=== PATIENT | male | born 1960 | race Caucasian/White ===

== ENCOUNTER 2017-11-27 16:54 | Emergency (ER) | payer OTHER ==
[~2017-11-27] VITALS: Ht 180.3 cm; Wt 90.7 kg
[2017-11-27] MEDS ORDERED: LISI20 PO (17:11)
[2017-11-27] MEDS ORDERED: INSULANPEN (17:12)
[2017-11-27] MEDS ORDERED: Novolin R100 UNIT/M SC (17:12)
[2017-11-27] MEDS ORDERED: METF500 PO (17:12)
[2017-11-27 17:49] LABS: BASOPHILS ABSOLUTE AUTO 0.09 K/mm3 (0.00-0.23); BASOPHILS PERCENT AUTO 1 % (0-2); EOSINOPHILS ABSOLUTE AUTO 0.12 K/mm3 (0.00-0.68); EOSINOPHILS PERCENT AUTO 2 % (0-6); Hematocrit 40.6 % (37.0-53.0); Hemoglobin 14.1 g/dL (13.5-17.5); IMMATURE GRAN ABSOLUTE AUTO 0.04 K/mm3 (0.00-0.10); IMMATURE GRAN PERCENT AUTO 1 % (0-1); LYMPHOCYTES ABSOLUTE AUTO 2.26 K/mm3 (0.84-5.20); LYMPHOCYTES PERCENT AUTO 33 % (21-46); MONOCYTES ABSOLUTE AUTO 0.69 K/mm3 (0.16-1.47); MONOCYTES PERCENT AUTO 10 % (4-13); Mean Corpuscular HGB 29.7 pg (26.0-34.0); Mean Corpuscular HGB Conc 34.7 g/dL (31.5-36.5); Mean Corpuscular Volume 86 fL (80-100); Mean Platelet Volume 10.9 fL (9.1-12.4); NEUTROPHILS ABSOLUTE AUTO 3.73 K/mm3 (1.96-9.15); NEUTROPHILS PERCENT AUTO 54 % (41-73); Platelet Count 315 K/mm3 (150-400); RDW Coefficient Variation 11.8 % (11.7-14.2); Red Blood Cell Count 4.74 M/mm3 (4.30-5.90); White Blood Cell Count 6.93 K/mm3 (4.00-11.30)
[2017-11-27 18:08] LABS: Alanine Aminotransfer (ALT/SGP 29 U/L (12-78); Albumin, Blood 3.6 g/dL (3.4-5.0); Albumin/Globulin Ratio 0.8 (0.8-1.8); Alk Phos 94 U/L (50-136); Anion Gap 7 mmol/L (6-16); Aspartate Aminotrans (AST/SGOT 16 U/L (12-37); Bilirubin, Total 0.2 mg/dL (0.1-1.0); Blood Urea Nitrogen 20 mg/dL (8-24); Bun/Creatinine Ratio 26.3 (12.0-20.0); CO2, Blood 27 mmol/L (21-32); Calcium, Blood 8.7 mg/dL (8.5-10.1); Chloride, Blood 101 mmol/L (98-108); Creatinine, Blood 0.76 mg/dL (0.60-1.20); Globulin, Blood 4.5 g/dL (2.2-4.0); Glomerular Filtration Rate >60 (60-); Glucose, Blood 386 mg/dL (70-99); Potassium, Blood 3.9 mmol/L (3.5-5.5); Sodium, Blood 135 mmol/L (136-145); Total Protein, Blood 8.1 g/dL (6.4-8.2); Troponin I <0.015 ng/mL (0.000-0.040)
[2017-11-27] MEDS ORDERED: IBUP600 PO (20:39)
[2017-11-27] MEDS ORDERED: Percocet 5-3251 EACH PO (20:39)
[2018-03-12] MEDS ORDERED: Hydrocodone-Ap1 EA20 PO (19:35)
[2018-03-12] MEDS ORDERED: HYDROCODONE-IB1 EACH PO (19:36)
[2018-03-12] MEDS ORDERED: IBUP800 PO (19:37)
[2018-03-12] MEDS ORDERED: LIDO700A20 TOP (19:38)
[2018-03-12] MEDS ORDERED: OXYC10TA19 PO (19:39)
[2018-03-12] MEDS ORDERED: NITR.4SL SL (19:39)
[2018-03-12] MEDS ORDERED: TAMS.4ER PO (19:40)
[2018-03-13] MEDS ORDERED: INVOKANA300 MG PO (12:14)
[2018-03-13] MEDS ORDERED: LISI20 PO (12:14)
[2018-03-13] MEDS ORDERED: METO25 PO (12:15)
[2018-03-13] MEDS ORDERED: ALPR.5 PO (12:19)
[2018-03-14] MEDS ORDERED: Hydrocodone-Ap1 EA20 PO (09:03)
[2018-03-16] MEDS ORDERED: LEVO750 PO (16:00)
== END 2017-11-27 21:18 | disposition home or self-care (01) ==
LOC: ER 16:54
PROVIDERS: Emergency Medicine
DX: S16.1XXA Strain of muscle, fascia and tendon at neck level, initial encounter (principal); S40.011A Contusion of right shoulder, initial encounter; S40.021A Contusion of right upper arm, initial encounter; I11.0 Hypertensive heart disease with heart failure; I50.9 Heart failure, unspecified; E11.9 Type 2 diabetes mellitus without complications; V43.63XA Car passenger injured in collision with pick-up truck in traffic accident, initial encounter
CPT/HCPCS: 36415; 70450; 71046; 72125; 73030; 73060; 80053; 84484; 85025; 93005; 93010; 96374; 96375; 96376; 99284; J1170; J2405; L0160

== ENCOUNTER 2018-04-02 14:43 | Day surgery (SDC) | payer OTHER ==
[~2018-04-02 14:43] MED LIST: ALPR.5 PO; HYDROCODONE-IB1 EACH PO; Hydrocodone-Ap1 EA20 PO; IBUP600 PO; IBUP800 PO; INSULANPEN; INVOKANA300 MG PO; LEVO750 PO; LIDO700A20 TOP; LISI20 PO; METF500 PO; METO25 PO; NITR.4SL SL; Novolin R100 UNIT/M SC; OXYC10TA19 PO; Percocet 5-3251 EACH PO; TAMS.4ER PO
[2018-04-02 15:21] LABS: Prothrombin Time Results 10.4 Sec (9.7-11.5)
== END 2018-04-02 22:49 | disposition home or self-care (01) ==
LOC: LAB 14:43 → US 14:43
PROVIDERS: Orthopaedic Surgery
DX: L03.115 Cellulitis of right lower limb (principal); R30.0 Dysuria; E11.42 Type 2 diabetes mellitus with diabetic polyneuropathy
CPT/HCPCS: 36415; 76882; 85610; 85730

== ENCOUNTER 2019-06-07 01:10 | Inpatient (IN) | payer OTHER ==
[~2019-06-07] VITALS: Ht 180.3 cm; Wt 86.5 kg
[2019-06-07 02:11] LABS: Mean Platelet Volume 11.4 fL (9.1-12.4); Platelet Count 251 K/mm3 (150-400)
[2019-06-07] MEDS ORDERED: Aspirin EC81 MG PO (02:23)
[2019-06-07] MEDS ORDERED: JARDIANCE10 MG PO (02:24)
[2019-06-07] MEDS ORDERED: IBUP800 PO (02:25)
[2019-06-07] MEDS ORDERED: Prinivil10 MG PO (02:25)
[2019-06-07] MEDS ORDERED: OXYC10TA19 PO (02:26)
[2019-06-07] MEDS ORDERED: METO25ER PO (02:26)
[2019-06-07] MEDS ORDERED: METF500 PO (02:26)
[2019-06-07] MEDS ORDERED: TAMS.4ER PO (02:27)
[2019-06-07 02:40] LABS: International Normalized Ratio 1.03; Prothrombin Time Results 10.9 Sec (9.7-11.5)
--- NOTE | 2019-06-07 03:55 | NUR ---
ADMIT PT ARRIVES FROM ER ON STRETCHER. PER PT, HAD BEEN WORKING OUTSIDE YESTERDAY, WENT INSIDE AND WOKE UP HURTING ALL OVER. PER PT, NEVER HAD CP, JUST GENERALIZED/DIFFUSE PAIN. PT ARRIVES ON NTG GTT AT 10MCG/MIN AND HEPARIN AT 13UNITS/KG/HR VERIFIED WITH CALISTA JAUREGUI. PT MEDICATED WITH PO PAIN MEDS PER ORDER, CALL OUT TO DR CARRENO FOR ORDER CLARIFICATION. PT HAS DIABETIC FOOT WOUND TO PLANTAR ASPECT OF LEFT FOOT. 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 PHOTO OBTAINED, ON CHART AND DRESSING CHANGED. VSS, ECG SHOWS SR AND O2 SATS 98% ON RA.
[2019-06-07 04:13] LABS: Hematocrit 36.8 % (37.0-53.0); Hemoglobin 11.9 g/dL (13.5-17.5); Mean Corpuscular HGB 29.6 pg (26.0-34.0); Mean Corpuscular HGB Conc 32.3 g/dL (31.5-36.5); Mean Corpuscular Volume 92 fL (80-100); Mean Platelet Volume 10.8 fL (9.1-12.4); Platelet Count 229 K/mm3 (150-400); RDW Coefficient Variation 12.5 % (11.7-14.2); RDW Standard Deviation 41.6 fL (35.1-46.3); Red Blood Cell Count 4.02 M/mm3 (4.30-5.90); White Blood Cell Count 7.22 K/mm3 (4.00-11.30)
[2019-06-07] MEDS ORDERED: Norco 10-325 T1 EACH PO (04:15)
[2019-06-07 04:33] LABS: Anion Gap 6 mmol/L (6-16); Blood Urea Nitrogen 15 mg/dL (8-24); Bun/Creatinine Ratio 16.2 (12.0-20.0); CO2, Blood 27 mmol/L (21-32); Calcium, Blood 8.5 mg/dL (8.5-10.1); Chloride, Blood 103 mmol/L (98-108); Creatinine, Blood 0.93 mg/dL (0.60-1.20); Glomerular Filtration Rate >60 (60-); Glucose, Blood 146 mg/dL (70-99); Sodium, Blood 136 mmol/L (136-145)
--- NOTE | 2019-06-07 05:21 | NUR ---
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 PT HAS BEEN UNDER THE CARE OF A LUMBER SCALER AT THE [facility] WHO HAS FOLLOWED UP WITH REPEAT SWABS AND PER PT, HAVE BEEN CLEAR. MESSAGE TO INFECTION CONTROL TO UDPATE AND AWAIT ADDITIONAL INSTRUCTIONS.
--- NOTE | 2019-06-07 06:18 | NUR ---
SHIFT SUMMARY NO ACUTE EVENTS SINCE ARRIVAL AT 0355. PT CURRENTLY RESTING QUIETLY AND PT'S VINICIO IS IN THE ROOM. NTG AT 15MCG/MIN AND HEPARIN REMAINS AT 13UNITS/KG/HR WITH REPEAT PTT PLANNED AT 1000. PT HAS REPORTED GENERALIZED PAIN IN HIS BACK, OFFERED WARMING BLANKET, REPOSITIONING ASSISTANCE AND TOOK PO PAIN MEDS. VSS, ECG SHOWS SR AND O2 SATS >95%.
--- NOTE | 2019-06-07 08:18 | NUR ---
PT SLEEPING, AROUSES TO VOICE. DENIES C/O CHEST PAIN/PRESSURE, DENIES ALL C/O PAIN, NAUSEA,SOB. C/O BEING "HUNGRY". PT SOMEWHAT IRRITABLE. REASONS FOR NPO STATUS EXPLAINED TO PT, PT MAY HAVE INTERVENTION TODAY. TROPONIN HAS DROPPED TO 1.26, DR RHOADES AT BEDSIDE TO SEE PT, NOTIFIED OF TROPONIN LEVEL. HEPARIN GTT RUNNING AT 13UNITS, NTG RUNNING AT 15MCG. PO MEDS GIVEN W SMALL SIP OF WATER. PT REQUEST TO SLEEP.
--- NOTE | 2019-06-07 10:18 | NUR ---
ECHO COMPLETE, CAROTID DOPPLER IN PROGRESS. DR RITCHIE IN WITH PT; CONSENTED FOR ANGIOGRAM. CT OF HEAD COMPLETE. PT AWAKE W/O COMPLAINTS. AT BEDSIDE.
--- NOTE | 2019-06-07 12:53 | NUR ---
HEPARIN IV BOLUS GIVEN PER PHARMACY ORDERS, HEPARIN INCREASED TO 15UNITS PER PHARMACY.
--- NOTE | 2019-06-07 14:29 | NUR ---
PT TO DEFENSE ANALYST FOR ANGIOGRAM WITH DEFENSE ANALYST STAFF.
[2019-06-07 17:29] LABS: Source, Urine Catheter
[2019-06-07 17:52] LABS: Bilirubin, Urine Neg (Neg); Blood, Urine Neg (Neg); Glucose Qualitative, Urine 3+ (Neg); Ketones, Urine Neg (Neg); Leukocyte Esterase, Urine Neg (Neg); Nitrite, Urine Neg (Neg); Protein, Urine Neg (Neg); Urobilinogen, Urine NORM (Normal)
--- NOTE | 2019-06-07 17:54 | NUR ---
PT RETURNED FROM HEAD GREENSKEEPER AT 1615. JANUSZ JAUREGUI TOOK BEDSIDE REPORT. PT ASSESSED BY THIS RN AT 1630. PT AWAKE AND ALERT W C/O PAIN TO LOWER BACK AND NECK 07/02. PT STATES HE HAD NECK PAIN FOR THE PAST 24HRS D/T A FALL AT HOME. R GROIN SITE W SHEATH STABEL, WITH NO HEMATOMA, SWELLING, OR BLEEDING. PULSES +@ TO R AND L P.T, D.P. AGGRASTAT AT 16.5 ML/HR PER HEAD GREENSKEEPER ORDERS AND TO RUN FOR [address] SCOTT. SHEATH MAY BE PULLED IF PTT TAKEN AT 1730 IS LESS THAN 50. NS RUNNING AT 200CC/HR X 1 LITER. CASANOVA PLACED D/T INABILITY TO VOID. 16F CATH PLACED W/O DIFF, UA SENT PER PROTOCOL.
[2019-06-07 18:23] LABS: Appearance, Urine Clear (Clear); Color, Urine Yellow (P-Yellow)
--- NOTE | 2019-06-07 19:14 | NUR ---
DURING BEDSIDE REPORT PT C/O PAIN TO LOWER AND MID BACK 07/02, PT BECAME VERY ANGRY TOWARDS ONCOMING RN, RAISING VOIVE AND THREATENING TO "IT RIP OUT MYSELF", SPEAKING OF SHEATH. ABLE TO CALM AND REDIRECT PT. PT INSISTENT THAT THAT HIS PAIN BE ADDRESSED IMMEDIATELY. DR SOCTT CALLED IMMEDIATELY AND GIVEN REPORT ON PT. NEW ORDERS FOR MS, FENT, ATIVAN IF NEEDED. PT WAS EDUCATED ON RISK OF POSSIBLE 2ND TO PULLING SHEATH. PT VERBALIZED UNDERSTANDING. ALSO NOTIFIED THAT PTT WAS STILL TOO HIGH TO PULL SHEATH.
--- NOTE | 2019-06-07 19:18 | NUR ---
ASSUMED CARE OF PT AT 1915. REPORT RECEIVED AT BEDSIDE. PT PRESENTS VERY ANGRY AND NON COMPLIANT ABOUT POSITIONING RELATED TO HAVING FEMORAL SHEATH IN PLACE. OFFGOING HOLLIS JAUREGUI CALLS DR CAGLE TO OBTAIN ORDERS SECONDARY PT'S ANGER AND PAIN ISSUES. DID ADDRESS PT AFTER ORDERS RECEIVED TO INFORM HIM OF THE ORDERS RECEIVED. WILL MEDICATE PT WHEN MEDICATIONS AVAILABLE. WILL REVIEW CHART AND PLAN OF CARE FOR THIS PT.
--- NOTE | 2019-06-07 19:43 | NUR ---
MEDICATED PT WITH 2 MG MORPHINE, AND 1 MG ATIVAN. HEAT PACKS APPLIED TO PT'S BACK. HE HAD STATED THAT HIS PAIN WAS A 12/10 TO HIS BACK DURING INITIAL GREETING, AND JUST POST MORPHINE AND ATIVAN CALMED TO 8/10. WILL READDRESSS SHORTLY TO SEE IF ANY IMPROVEMENTS WITH HEAT PACK AND MEDICATIONS HAS OCCURRED. OF NOTE: WHEN MEDICATIONS BROUGHT TO PT, PT VERBALIZED APOLOGIES FOR BEING VERBALLY AGGRESSIVE AND ANGRY TOWARDS THIS RN. WAS ABLE TO DO FURTHER TEACHING WITH PT ON SHEATH AND SAFETY. PT STATES THAT HE HAS HAD CARDIAC INTERVENTION BEFORE AND HAD RADIAL ACCESS. REASSURED PT AND ALLOWED HIM TO EXPRESS HIS FEELINGS AND FRUSTRATIONS. WILL MEDICATE PT WITH FENTANYL IF MORPHINE AND ATIVAN DOES NOT RELIEVE HIS PAIN TO HIS ACCEPTABLE PAIN LEVEL. RIGHT GROIN SITE WITHOUT HEMATOMA. PT HAS DESCRIBED HIS BACK PAIN MID BACK PAIN ACCROSS BOTH SIDES OF SPINE.
--- NOTE | 2019-06-07 23:00 | NUR ---
CALL RECEIVED FROM DR SCOTT WHEREAS ORDERS RECEIVED. WAS ABLE TO PULL SHEATH AT 2139 FROM RIGHT GROIN. HELD PRESSURE FOR 30 MINUTES SECONDARY TO PT RELUCTANCE TO FOLLOW INSTRUCTIONS WITH FEMORAL SHEATH PRECAUTIONS. PT'S STAYS IN ROOM AND TRIES TO KEEP PT CALM. WITH SHEATH PULL AND FOLLOWUP, PT VERY ANGRY. HE VOICES THAT HE IS UPSET THAT THE DOCTORS DID NOT TAKE CARE OF HIS BACK ISSUES FROM HIS FALL SEVERAL WEEKS AGO AND HIS FALL IN THE KITCHEN AT HOME PRIOR TO COMING INTO HOSPITAL. AFTER HEMOSTASIS ACHIEVED THIS RN REMAINED IN ROOM TO OBSERVE PT AND TO KEEP HIM FROM HAVING REBLEED. HE TOLD HIS DURING THIS TIME THAT HE WAS GOING TO MOVE AROUND IN BED HOWEVER AND WHENEVER HE WANTED. OPTED TO PLACE FEMSTOP TO RIGHT GROIN TO PASSIVE PRESSURE TO PROTECT SITE FROM BLEED. TEACHING DONE WITH PT AND HIS ON RATIONALE. HAVE MEDICATED PT WITH A TOTAL OF 75 MCG FENTANYL, 2 MG MORPHINE, 1 MG ATIVAN, 1 MG VERSED, AND SUBSEQUENTLY WITH 10MG OXYCODONE AND 650 MG TYLENOL FOR HIS COMPLAINTS OF BACK PAIN. HAVE PLACED WARM PACKS TO HIS BACK, AND DONE SOME POSITIONING WITHIN RESTICTIONS POST SHEATH PULL. PT'S HAS SINCE GONE HOME FOR THE NIGHT. WILL CONTINUE TO MONITOR PT.
--- NOTE | 2019-06-08 01:18 | NUR ---
HAVE MOVE BED UP TO 30 DEGREES, PT CURRENTLY SLEEPING. FEMSTOP HAS BEEN COMPLETELY RELEASED. RIGHT GROIN WITHOUT S/S BLEEDING OR HEMATOMA. PT AWAKENS FOR POSITION CHANGE AND MIDNIGHT TEMPERATURE WITHOUT COMPLAINTS OF PAIN. WILL CONTINUE TO MONITOR.
[2019-06-08 04:16] LABS: BASOPHILS PERCENT AUTO 1 % (0-2); EOSINOPHILS ABSOLUTE AUTO 0.21 K/mm3 (0.00-0.68); EOSINOPHILS PERCENT AUTO 3 % (0-6); Hematocrit 38.3 % (37.0-53.0); Hemoglobin 12.6 g/dL (13.5-17.5); IMMATURE GRAN ABSOLUTE AUTO 0.02 K/mm3 (0.00-0.10); IMMATURE GRAN PERCENT AUTO 0 % (0-1); LYMPHOCYTES ABSOLUTE AUTO 1.93 K/mm3 (0.84-5.20); LYMPHOCYTES PERCENT AUTO 26 % (21-46); MONOCYTES PERCENT AUTO 12 % (4-13); Mean Corpuscular HGB 28.8 pg (26.0-34.0); Mean Corpuscular HGB Conc 32.9 g/dL (31.5-36.5); Mean Platelet Volume 10.8 fL (9.1-12.4); NEUTROPHILS ABSOLUTE AUTO 4.26 K/mm3 (1.96-9.15); NEUTROPHILS PERCENT AUTO 58 % (41-73); Platelet Count 272 K/mm3 (150-400); RDW Coefficient Variation 12.6 % (11.7-14.2); RDW Standard Deviation 40.2 fL (35.1-46.3); Red Blood Cell Count 4.37 M/mm3 (4.30-5.90); White Blood Cell Count 7.42 K/mm3 (4.00-11.30)
[2019-06-08 04:17] LABS: Mean Corpuscular Volume 88 fL (80-100)
[2019-06-08 04:37] LABS: Anion Gap 6 mmol/L (6-16); Blood Urea Nitrogen 12 mg/dL (8-24); Bun/Creatinine Ratio 13.4 (12.0-20.0); CO2, Blood 26 mmol/L (21-32); Calcium, Blood 8.3 mg/dL (8.5-10.1); Chloride, Blood 107 mmol/L (98-108); Glomerular Filtration Rate >60 (60-); Glucose, Blood 98 mg/dL (70-99); Potassium, Blood 3.9 mmol/L (3.5-5.5); Sodium, Blood 139 mmol/L (136-145)
--- NOTE | 2019-06-08 04:51 | NUR ---
PT HAS NO COMPLAINTS OF PAIN. IS ABLE TO MOVE HIMSELF ABOUT IN BED. MAKES USE OF BED CONTROLS. HAS BEEN ABLE TO REST. GROIN SITE SOFT, NO HEMATOMA OR OOZING TO NOTE. GOOD DISTAL CMS CHECKS. WILL CONTINUE TO MONITOR.
--- NOTE | 2019-06-08 06:22 | NUR ---
PT ABLE TO MOVE ABOUT IN BED ON HIS OWN. HAS NO COMPLAINTS OF CHEST PAIN OR PRESSURE. NO COMPLAINTS OF BACK PAIN. RIGHT GROIN SITE REMAINS SOFT, NO OOZING OR HEMATOMA. GOOD DISTAL CMS CHECKS REMAIN. WILL CONTINUE TO MONITOR PT, AND WILL REPORT OFF TO ONCOMING RN.
--- NOTE | 2019-06-08 07:19 | NUR ---
PT AWAKE AND ALERT SITTING UP IN BED. BEDSIDE REPORT TAKEN. PT REMAINS IRRITABLE BUT COOPERATIVE. DR RITCHIE IN TO SEE PT. PLAN IS FOR PT TO BE DC'D HOME TODAY. EDILBERTO CRUZ'D BY ULISES JAUREGUI. PT COMPLAINTS OF BACK PAIN 07/02; CHRONIC PAIN. WILL MEDICATE FOR PAIN. PLAN, OOB TO CHAIR, NUTRITION CONSULT, PROBABLE DC HOME. RIGHT GROIN SITE STABLE, W/O SWELLING, BLEEDING, HEMATOMA.
[2019-06-08 08:51] LABS: CHOL/HDL RATIO 5.7; Cholesterol 189 mg/dL (50-200); HDL Cholesterol 33 mg/dL (>39); LDL/HDL RATIO 3.9; Low Density Lipoprotein Chol 130 mg/dL (0-110); Triglycerides 132 mg/dL (30-160); Very Low Density Lipoprot Chol 26 mg/dL (6-32)
--- NOTE | 2019-06-08 09:15 | NUR ---
PT OOB TO CHAIR FOR BREAKFAST, TOLLERATED WELL. NUTRITION AT BEDSIDE FOR CONSULT. DR SCOTT IN TO CHECK GROIN SITE; STABLE.
[2019-06-08] MEDS ORDERED: CLOP75 PO (11:19)
[2019-06-08] MEDS ORDERED: EZET10 PO (11:20)
[2019-06-08] MEDS ORDERED: NEBI10 PO (11:20)
--- NOTE | 2019-06-08 11:55 | NUR ---
VERBAL AND WRITTEN DC INSTRUCTIONS GIVEN TO PT AND PT'S WITH CLEAR UNDERSTANDING. PT GIVEN POST FEM ACCESS SITE INSTRUCTIONS. PT ADVISED TO START GLUCOPHAGE ON 06/[address] RHOADES'S ORDERS. RX FAXED INTO [facility]. PT DC'D HOME IN STABLE CONDITION.
== END 2019-06-08 11:50 | disposition home or self-care (01) | DRG 247 ==
LOC: ER 01:10 → ICUW 03:11
PROVIDERS: Emergency Medicine; Family Medicine; Internal Medicine Cardiovascular Disease; ADMIT Hospitalist
PROC: 027034Z Dilation of Coronary Artery, One Artery with Drug-eluting Intraluminal Device, Percutaneous Approach (ICD-10-PCS; principal; 2019-06-06)
PROC: 4A023N7 Measurement of Cardiac Sampling and Pressure, Left Heart, Percutaneous Approach (ICD-10-PCS; 2019-06-06)
PROC: B2111ZZ Fluoroscopy of Multiple Coronary Arteries using Low Osmolar Contrast (ICD-10-PCS; 2019-06-06)
DX: I21.4 Non-ST elevation (NSTEMI) myocardial infarction (principal); L97.422 Non-pressure chronic ulcer of left heel and midfoot with fat layer exposed; I10 Essential (primary) hypertension; E78.5 Hyperlipidemia, unspecified; Z79.82 Long term (current) use of aspirin; W19.XXXA Unspecified fall, initial encounter; Z95.1 Presence of aortocoronary bypass graft; I25.10 Atherosclerotic heart disease of native coronary artery without angina pectoris; F43.10 Post-traumatic stress disorder, unspecified; G89.29 Other chronic pain; F41.9 Anxiety disorder, unspecified; J30.9 Allergic rhinitis, unspecified; E66.9 Obesity, unspecified; Z68.27 Body mass index [BMI] 27.0-27.9, adult; Z79.02 Long term (current) use of antithrombotics/antiplatelets; Z79.84 Long term (current) use of oral hypoglycemic drugs; E11.621 Type 2 diabetes mellitus with foot ulcer
CPT/HCPCS: 36415; 51702; 70450; 80048; 80061; 81003; 82947; 83036; 84484; 85025; 85027; 85049; 85347; 85610; 85730; 87081; 93005; 93010; 93306; 93458; 93880; 96365; 96368; 99152; 99153; 99285-25; A9270; C1769; C1874; C1887; C1894; C9604; J0360; J1644; J2060; J2250; J2270; J3010; J3246; J7030; Q9967

== ENCOUNTER 2021-05-24 09:14 | Observation (INO) | payer OTHER ==
[~2021-05-24] VITALS: Ht 182.9 cm; Wt 83.9 kg
[~2021-05-24 09:14] MED LIST changes: +Aspirin EC81 MG PO; +CLOP75 PO; +EZET10 PO; +JARDIANCE25 MG PO; +METO25ER PO; +NEBI10 PO; +Norco 10-325 T1 EACH PO; +Prinivil10 MG PO
[2021-05-24 10:15] LABS: BASOPHILS ABSOLUTE AUTO 0.12 K/mm3 (0.00-0.23); BASOPHILS PERCENT AUTO 2 % (0-2); EOSINOPHILS ABSOLUTE AUTO 0.26 K/mm3 (0.00-0.68); EOSINOPHILS PERCENT AUTO 3 % (0-6); Hematocrit 41.2 % (37.0-53.0); Hemoglobin 13.8 g/dL (13.5-17.5); IMMATURE GRAN ABSOLUTE AUTO 0.05 K/mm3 (0.00-0.10); IMMATURE GRAN PERCENT AUTO 1 % (0-1); LYMPHOCYTES ABSOLUTE AUTO 2.85 K/mm3 (0.84-5.20); LYMPHOCYTES PERCENT AUTO 35 % (21-46); MONOCYTES ABSOLUTE AUTO 1.12 K/mm3 (0.16-1.47); MONOCYTES PERCENT AUTO 14 % (4-13); Mean Corpuscular HGB 29.2 pg (26.0-34.0); Mean Corpuscular HGB Conc 33.5 g/dL (31.5-36.5); Mean Corpuscular Volume 87 fL (80-100); Mean Platelet Volume 10.9 fL (9.1-12.4); NEUTROPHILS ABSOLUTE AUTO 3.74 K/mm3 (1.96-9.15); NEUTROPHILS PERCENT AUTO 46 % (41-73); Platelet Count 233 K/mm3 (150-400); RDW Coefficient Variation 12.6 % (11.7-14.2); RDW Standard Deviation 40.6 fL (35.1-46.3); Red Blood Cell Count 4.72 M/mm3 (4.30-5.90); White Blood Cell Count 8.14 K/mm3 (4.00-11.30)
[2021-05-24 10:28] LABS: Alanine Aminotransfer (ALT/SGP 30 U/L (12-78); Albumin, Blood 3.9 g/dL (3.4-5.0); Albumin/Globulin Ratio 0.9 (0.8-1.8); Alk Phos 58 U/L (50-136); Anion Gap 5 mmol/L (6-16); Aspartate Aminotrans (AST/SGOT 21 U/L (12-37); Bilirubin, Total 0.3 mg/dL (0.1-1.0); Blood Urea Nitrogen 37 mg/dL (8-24); Bun/Creatinine Ratio 29.6 (12.0-20.0); CO2, Blood 25 mmol/L (21-32); Calcium, Blood 9.2 mg/dL (8.5-10.1); Chloride, Blood 105 mmol/L (98-108); Creatinine, Blood 1.25 mg/dL (0.60-1.20); Globulin, Blood 4.4 g/dL (2.2-4.0); Glomerular Filtration Rate >60 (60-); Glucose, Blood 180 mg/dL (70-99); Potassium, Blood 4.2 mmol/L (3.5-5.5); Sodium, Blood 135 mmol/L (136-145); Total Protein, Blood 8.3 g/dL (6.4-8.2); Troponin I <0.015 ng/mL (0.000-0.040)
[2021-05-24 10:45] LABS: International Normalized Ratio 0.91; Prothrombin Time Results 9.9 Sec (9.7-11.5)
[2021-05-24] MEDS ORDERED: HYDROCODONE-AC1 EAC7 PO (12:38)
[2021-05-24] MEDS ORDERED: Crestor20 MG PO (13:12)
[2021-05-24] MEDS ORDERED: COREG12.5 M1 PO (13:14)
--- NOTE | 2021-05-24 13:37 | NUR ---
ADMISION PT ADMITTED AT 1337. PT DRESSED IN HIS JEANS. STATES HE DOES NOT WANT TO TAKE THEM OFF AT THIS TIME. VS TAKEN. ECHO SET UP TO BE COMPLETED AT BEDSIDE. MRI SCREENING FORM COMPLETED AND SENT TO MRI. AT BEDSIDE. PT ORIENTED TO ROOM. CALL LIGHT IN REACH.
--- NOTE | 2021-05-24 16:25 | NUR ---
ATTEMPTED A BEDSIDE SWALLOW WITH PT. PT REFUSED AND REPORTS HE WAS LEAVING AT 1800 HOWEVER PT DOES NOT HAVE DISCHARGE ORDERS. PT ADAMANT HE DID NOT WANT TO PARTICIPATE IN BEDSIDE SWALLOW.
--- NOTE | 2021-05-24 18:31 | NUR ---
DISCHARGE AMA PT DECIDED TO LEAVE AMA AT 1825. PT UPSET WITH THE LACK OF URGENCY ABOUT HIS CONDITION. MRI WAS COMPLETED AT 1730. PT REFUSED TO STAY OVERNIGHT FOR RESULTS. PT REFUSED BEDSIDE SWALLOW EVAL & UPSET THAT HE CANNOT EAT OR DRINK. PT EDUCATED ON THE PLAN OF CARE AT THIS TIME AND THE RISKS OF LEAVING, INCLUDING STROKE AND DEALTH. PT STATES HE UNDERSTANDS & STATES THAT HE WILL BE LEAVING. IV REMOVED AT THIS TIME. AMA FORM SIGNED. DR. RHOADES NOTIFIED. PT REFUSED WHEELCHAIR AND AMBULATED OUT OF THE BUILDING.
== END 2021-05-24 18:27 | disposition left against medical advice (07) ==
LOC: ER 09:14 → MEDS 09:15
PROVIDERS: Emergency Medicine; ADMIT Internal Medicine
DX: I63.9 Cerebral infarction, unspecified (principal); R47.81 Slurred speech; E87.1 Hypo-osmolality and hyponatremia; N17.9 Acute kidney failure, unspecified; E11.9 Type 2 diabetes mellitus without complications; I10 Essential (primary) hypertension; G89.29 Other chronic pain; Z79.82 Long term (current) use of aspirin; Z79.899 Other long term (current) drug therapy; Z79.891 Long term (current) use of opiate analgesic
CPT/HCPCS: 36415; 70450; 70496; 70498; 70551; 80053; 84484; 85025; 85610; 85730; 93005; 93010; 93306; 96374; 96375; 97110; 97112; 97162; 97165; 99285-25; A9270; G0378; J2310; Q9967

== ENCOUNTER 2021-10-14 13:05 | Day surgery (SDC) | payer OTHER ==
[~2021-10-14] VITALS: Ht 180.3 cm; Wt 99.5 kg
[~2021-10-14 13:05] MED LIST changes: +CARV6.25 PO; +CELE200 PO; +Crestor40 MG PO; +Cyclobenzaprine5 MG; +DOCU100 PO; +DOXY100 PO; +HYDROCODONE-AC1 EAC7 PO; +LIDO700A20; +MUPIROCIN1 G1 TOP; +NYSTRIT TOP; +OXYC10ER PO
--- NOTE | 2021-10-14 15:28 | NUR ---
10/14/21 1528 Mery العراقي 10CC OF BUPIVACAINE 1:200,000 INJECTED IN OPSITE BY
== END 2021-10-14 16:55 | disposition home or self-care (01) ==
LOC: ORSCSDS 13:05
PROVIDERS: Podiatrist Foot & Ankle Surgery
PROC: 0L8P0ZZ Division of Left Lower Leg Tendon, Open Approach (ICD-10-PCS; principal; 2021-10-14 14:30)
DX: M24.572 Contracture, left ankle (principal); E11.42 Type 2 diabetes mellitus with diabetic polyneuropathy; E11.621 Type 2 diabetes mellitus with foot ulcer; E78.5 Hyperlipidemia, unspecified; I10 Essential (primary) hypertension; I25.2 Old myocardial infarction; Z79.899 Other long term (current) drug therapy
CPT/HCPCS: 82947; J0171; J0690; J1100; J2250; J2405; J2704; J3010; J7120

== ENCOUNTER 2024-08-31 07:43 | Day surgery (SDC) | payer OTHER ==
[~2024-08-31] VITALS: Ht 180.3 cm; Wt 98.8 kg
[~2024-08-31 07:43] MED LIST changes: +Balanced Salt Epinephrine Irrigation Solution 500 mL IR SCH; +Lidocaine HCl/Pf 1% 5 ML VIAL XX SCH; +Moxifloxacin HCL 0.5 MG/0.1 ML 0.4MLSYR RIGHTEYE SCH; +NS 500 ML IV ONE; +OXAYDO5 M1 PO; +PHENYLEPHRINE\\TROPICAMIDE\\TETRACAINE OPHTHALMIC DILATING SOLN RIGHTEYE PRN; +Povidone-Iodine 450 DROP/30 ML Solution ONE; +Povidone-Iodine 450 DROP/30 ML Solution RIGHTEYE SCH; +Tetracaine HCl/Pf 0.5% Opth Soln 4 ml ONE; +Triamcinolone Inj Susp 40 MG / ML 1ML Vial INJ SCH; +Triamcinolone Inj Susp 40 MG / ML 1ML Vial ONE
[2024-08-31] MEDS ORDERED: Diazepam 10 MG Tab ONE ×2 (08:06→08:20)
[2024-08-31] MEDS ORDERED: Carvedilol12.5 MG PO (08:21)
[2024-08-31] MEDS ORDERED: OXYC10TA19 PO (08:22)
[2024-08-31] MEDS ORDERED: Adderall Xr 2525 MG PO (08:24)
[2024-08-31] MEDS ORDERED: Actos15 MG PO (08:25)
--- NOTE | 2024-08-31 08:28 | NUR ---
08/31/[address] IN ROOM AND GAVE PATIENT VALIUM 5MG PO AT 0825. PT ON SPO2 MONITOR. O2 98%
[2024-08-31] MEDS ORDERED: NS 500 ML IV ONE ×2 (08:30→09:16)
[2024-08-31 09:35] VITALS: BP 133/75
== END 2024-08-31 09:48 | disposition home or self-care (01) ==
LOC: ORSCSDS 07:43
PROVIDERS: Ophthalmology
PROC: 08RJ3JZ Replacement of Right Lens with Synthetic Substitute, Percutaneous Approach (ICD-10-PCS; principal; 2024-08-31 09:00)
DX: E11.36 Type 2 diabetes mellitus with diabetic cataract (principal); H25.811 Combined forms of age-related cataract, right eye; H21.81 Floppy iris syndrome; I10 Essential (primary) hypertension; E78.5 Hyperlipidemia, unspecified; I25.2 Old myocardial infarction; F41.9 Anxiety disorder, unspecified; F32.A Depression, unspecified; F43.10 Post-traumatic stress disorder, unspecified; Z79.02 Long term (current) use of antithrombotics/antiplatelets; Z79.84 Long term (current) use of oral hypoglycemic drugs; Z79.899 Other long term (current) drug therapy
CPT/HCPCS: 82947; A9270; J3301; J7040; V2632

== ENCOUNTER 2024-09-15 12:01 | Day surgery (SDC) | payer OTHER ==
[~2024-09-15] VITALS: Ht 180.3 cm; Wt 98.3 kg
[~2024-09-15 12:01] MED LIST changes: +Actos15 MG PO; +Adderall Xr 2525 MG PO; +Carvedilol12.5 MG PO; +Moxifloxacin HCL 0.5 MG/0.1 ML 0.4MLSYR LEFTEYE SCH; -Moxifloxacin HCL 0.5 MG/0.1 ML 0.4MLSYR RIGHTEYE SCH; +PHENYLEPHRINE\\TROPICAMIDE\\TETRACAINE OPHTHALMIC DILATING SOLN LEFTEYE PRN; -PHENYLEPHRINE\\TROPICAMIDE\\TETRACAINE OPHTHALMIC DILATING SOLN RIGHTEYE PRN; +Povidone-Iodine 450 DROP/30 ML Solution LEFTEYE SCH; -Povidone-Iodine 450 DROP/30 ML Solution RIGHTEYE SCH
[2024-09-15] MEDS ORDERED: NS 1,000 ML IV ONE (12:22)
[2024-09-15] MEDS ORDERED: Midazolam HCl 1MG / ML 2ML Vial ONE (12:30)
[2024-09-15] MEDS ORDERED: Tetracaine HCl 0.5% Opth Soln 15 ml LEFTEYE ONE (12:51)
[2024-09-15 13:37] VITALS: BP 131/63
== END 2024-09-15 13:26 | disposition home or self-care (01) ==
LOC: ORSCSDS 12:01
PROVIDERS: Ophthalmology
PROC: 08RK3JZ Replacement of Left Lens with Synthetic Substitute, Percutaneous Approach (ICD-10-PCS; principal; 2024-09-15 13:30)
DX: E11.36 Type 2 diabetes mellitus with diabetic cataract (principal); H25.812 Combined forms of age-related cataract, left eye; H21.81 Floppy iris syndrome; Z96.1 Presence of intraocular lens; I10 Essential (primary) hypertension; E78.5 Hyperlipidemia, unspecified; N40.0 Benign prostatic hyperplasia without lower urinary tract symptoms; F43.10 Post-traumatic stress disorder, unspecified; I25.2 Old myocardial infarction; F41.9 Anxiety disorder, unspecified; Z79.02 Long term (current) use of antithrombotics/antiplatelets; Z79.84 Long term (current) use of oral hypoglycemic drugs; Z79.899 Other long term (current) drug therapy
CPT/HCPCS: 82947; J2250; J3301; J7040; V2632